=== PATIENT | female | born 1995 | race Caucasian/White ===

== ENCOUNTER 2016-07-20 16:46 | Emergency (ER) | payer OTHER ==
[~2016-07-20] VITALS: Ht 162.6 cm; Wt 92.6 kg
[~2016-07-20 16:46] MED LIST: BIRTHCONTROL PO; FLEXERIL10 MG PO
[2016-07-20 20:24] LABS: ADD MIUA? YES; BILIRUBIN NEGATIVE; BLOOD NEGATIVE; COLOR YELLOW ((YELLOW)); GLUCOSE (STRIP) NEGATIVE; KETONES NEGATIVE; LEUKOCYTES NEGATIVE; NITRITE NEGATIVE; PROTEIN (STRIP) NEGATIVE; SPECIFIC GRAVITY 1.031 (1.000-1.030); UROBILINOGEN 0.2 MG/DL (0.2-1.0)
[2016-07-20 21:01] LABS: EPITHELIAL CELLS 1+ /HPF; RED BLOOD CELLS 0-5 /HPF (0-5); WHITE BLOOD CELLS 0-5 /HPF (0-5)
[2016-07-20 21:02] LABS: BACTERIA 2+ /HPF; CASTS NONE SEEN /LPF; CRYSTALS NONE SEEN; MUCUS 1+ /LPF
[2016-07-20] MEDS ORDERED: ZOFRAN ODT4 MG PO (21:29)
[2016-07-20] MEDS ORDERED: FIORICET 50-301 EACH PO (21:29)
[2016-07-20 21:44] VITALS: BP 118/66
== END 2016-07-20 21:44 | disposition home or self-care (01) ==
LOC: EME 16:46
PROVIDERS: Nurse Practitioner Family
DX: F07.81 Postconcussional syndrome (principal); F17.200 Nicotine dependence, unspecified, uncomplicated
CPT/HCPCS: 70450; 81003; 84702; 99281; 99285